=== PATIENT | female | born 1955 | race Asian ===

== ENCOUNTER 2023-04-28 12:25 | Outpatient (CLI) | payer MEDICARE, OTHER | END 2023-04-28 12:26 | disposition home or self-care (01) | LOC: CSHMAMMO 12:25 | PROVIDERS: ATTEND Internal Medicine | DX: Z13.820 Encounter for screening for osteoporosis (principal); M81.0 Age-related osteoporosis without current pathological fracture; Z78.0 Asymptomatic menopausal state | CPT/HCPCS: 77080 ==

== ENCOUNTER 2023-10-20 13:40 | Outpatient (CLI) | payer OTHER | END 2023-10-20 13:41 | disposition home or self-care (01) | LOC: CSHULT 13:40 | PROVIDERS: ATTEND Internal Medicine | DX: E04.1 Nontoxic single thyroid nodule (principal); E04.2 Nontoxic multinodular goiter | CPT/HCPCS: 76536 ==